=== PATIENT | male | born 1995 | race Caucasian/White ===

== ENCOUNTER 2016-11-29 02:07 | Emergency (ER) | payer BC ==
[~2016-11-29] VITALS: Ht 172.7 cm; Wt 72.6 kg
[~2016-11-29 02:07] MED LIST: CLARITIN10 MG PO; LEVAQUIN750 M1 PO; MOTRIN800 MG PO; Motrin,Rufen800 MG PO; PHENERGAN25 M3 PO; VICODIN 5/500 505 MG PO; ZITHROMAX Z PA250 MG PO; ZITHROMAX500 MG PO
== END 2016-11-29 03:39 | disposition home or self-care (01) ==
LOC: ED 02:07
DX: K40.90 Unilateral inguinal hernia, without obstruction or gangrene, not specified as recurrent (principal); Z79.899 Other long term (current) drug therapy

== ENCOUNTER 2017-08-23 14:02 | Emergency (ER) | payer OTHER ==
[~2017-08-23] VITALS: Ht 175.2 cm; Wt 72.6 kg
[2017-08-23] MEDS ORDERED: NORCO 5-325 TA1 EACH PO (15:47)
== END 2017-08-23 15:53 | disposition home or self-care (01) ==
LOC: ED 14:02
DX: S62.633A Displaced fracture of distal phalanx of left middle finger, initial encounter for closed fracture (principal); S62.635A Displaced fracture of distal phalanx of left ring finger, initial encounter for closed fracture; F10.10 Alcohol abuse, uncomplicated; W18.09XA Striking against other object with subsequent fall, initial encounter; Y93.89 Activity, other specified; Y92.89 Other specified places as the place of occurrence of the external cause; Y99.8 Other external cause status

== ENCOUNTER 2017-09-30 06:44 | Emergency (ER) | payer OTHER ==
[~2017-09-30] VITALS: Ht 175.2 cm; Wt 74.8 kg
[~2017-09-30 06:44] MED LIST changes: +NORCO 5-325 TA1 EACH PO
[2017-09-30 07:29] LABS: BASO # 0.1 10*3/uL (0.0-0.1); BASO % 0.9 % (0.0-1.0); EOS # 0.4 10*3/uL (0.0-0.4); EOS % 5.5 % (1.0-4.0); HEMATOCRIT 44.2 % (42.0-52.0); HEMOGLOBIN 15.2 g/dl (14.0-18.0); LYMPH % 29.8 % (27.0-41.0); MEAN CELL VOLUME 87.9 fl (80.0-94.0); MEAN CORPUSCULAR HGB 30.2 pg (27.0-31.0); MEAN CORPUSCULAR HGB CONC 34.4 g/dl (33.0-37.0); MEAN PLATELET VOLUME 10.3 fl (9.6-12.3); MONO # 0.4 10*3/uL (0.1-1.0); MONO % 6.1 % (3.0-9.0); NEUT # 3.9 10*3/uL (2.3-7.9); NEUT % 57.6 % (47.0-73.0); PLATELET COUNT AUTOMATED 249 10*3/uL (130-400); RED BLOOD COUNT 5.03 10*6/uL (4.50-5.90); RED CELL DISTRI WIDTH 11.9 % (0-14.5); WHITE BLOOD COUNT 6.8 10*3/uL (4.8-10.8)
[2017-09-30 07:43] LABS: ALKALINE PHOSPHATASE 74 U/L (45-117); BUN 15 mg/dl (7-24); CHLORIDE 105 mmol/L (98-107); CREATININE 1.13 mg/dL (0.70-1.30); LIPASE 119 U/L (73-393); SGOT/AST 22 IU/L (3-35); SGPT/ALT 29 U/L (12-78); SODIUM 139 mmol/L (136-145); TOTAL PROTEIN 7.3 gm/dL (6.4-8.2)
[2017-09-30 08:02] LABS: BILIRUBIN NEGATIVE (NEGATIVE); BLOOD 2+ (NEGATIVE); CLARITY CLEAR (CLEAR); COLOR YELLOW (YELLOW); GLUCOSE NEGATIVE (NEGATIVE); KETONE NEGATIVE (NEGATIVE); LEUKO ESTERASE NEGATIVE (NEGATIVE); NITRITE NEGATIVE (NEGATIVE); SPECIFIC GRAVITY 1.025 (1.005-1.030); UROBILINOGEN 0.2 E.U./dl (0.2-1.0)
[2017-09-30 08:11] LABS: MUCOUS TRACE; RBC 21-30 rbc/hpf (0-2)
[2017-09-30] MEDS ORDERED: ZOFRAN ODT4 MG SL (08:56)
[2017-09-30] MEDS ORDERED: Motrin,Rufen800 MG PO (08:56)
[2017-09-30] MEDS ORDERED: NORCO 5-325 TA1 EACH PO (08:56)
[2017-09-30] MEDS ORDERED: FLOMAX0.4 MG PO (08:56)
== END 2017-09-30 09:10 | disposition home or self-care (01) ==
LOC: ED 06:44
PROVIDERS: Emergency Medicine
DX: N20.1 Calculus of ureter (principal)

== ENCOUNTER → 2017-10-22 | Outpatient (CLI) | payer OTHER ==
[~2017-10-22] MED LIST changes: +FLOMAX0.4 MG PO; +ZOFRAN ODT4 MG SL
== END ==
LOC: RAD 13:46
DX: N20.0 Calculus of kidney (principal)

== ENCOUNTER → 2020-05-29 | Outpatient (CLI) | payer OTHER | END | disposition home or self-care (01) | LOC: US 08:30 | PROVIDERS: ATTEND Family Medicine | DX: N20.0 Calculus of kidney (principal) ==

== ENCOUNTER → 2021-01-12 | Outpatient (CLI) | payer BC ==
[~2021-01-12] MED LIST changes: +DECADRON6 M1 PO
== END | disposition home or self-care (01) ==
LOC: RAD 11:11
PROVIDERS: ATTEND Family Medicine
DX: R06.02 Shortness of breath (principal)

== ENCOUNTER 2021-02-08 10:33 | Emergency (ER) | payer BC ==
[~2021-02-08] VITALS: Ht 175.2 cm; Wt 83.9 kg
[~2021-02-08 10:33] MED LIST changes: -DECADRON6 M1 PO
[2021-02-08 11:33] LABS: BASO % 0.4 % (0.0-1.0); EOS % 0.4 % (1.0-4.0); HEMATOCRIT 47.9 % (42.0-52.0); LYMPH # 1.3 10*3/uL (1.3-4.4); LYMPH % 18.6 % (27.0-41.0); MEAN CELL VOLUME 88.7 fl (80.0-94.0); MEAN CORPUSCULAR HGB 29.1 pg (27.0-31.0); MEAN CORPUSCULAR HGB CONC 32.8 g/dl (33.0-37.0); MEAN PLATELET VOLUME 10.2 fl (9.6-12.3); MONO # 0.6 10*3/uL (0.1-1.0); MONO % 8.2 % (3.0-9.0); NEUT # 5.1 10*3/uL (2.3-7.9); NEUT % 72.1 % (47.0-73.0); PLATELET COUNT AUTOMATED 256 10*3/uL (130-400); RED CELL DISTRI WIDTH 13.1 % (0-14.5); WHITE BLOOD COUNT 7.1 10*3/uL (4.8-10.8)
[2021-02-08 11:52] LABS: ALBUMIN 3.5 gm/dl (3.1-4.5); ALKALINE PHOSPHATASE 68 U/L (45-117); BUN 11 mg/dl (7-24); CHLORIDE 102 mmol/L (98-107); CREATININE 1.35 mg/dL (0.70-1.30); LIPASE 149 U/L (73-393); POTASSIUM 3.5 mmol/L (3.5-5.1); SGOT/AST 28 IU/L (3-35); SGPT/ALT 47 U/L (12-78); SODIUM 136 mmol/L (136-145); TOTAL PROTEIN 7.4 gm/dL (6.4-8.2); TROPONIN I < 0.015 ng/ml (<0.045)
[2021-02-08 12:39] LABS: BILIRUBIN Negative (Negative); BLOOD Negative (Negative); CLARITY Clear (Clear); COLOR Yellow (Yellow); GLUCOSE Negative (Negative); KETONE Negative (Negative); LEUKO ESTERASE Negative (Negative); NITRITE Negative (Negative)
[2021-02-08 12:57] LABS: BACTERIA TRACE
[2021-02-08] MEDS ORDERED: DECADRON6 M1 PO (13:34)
== END 2021-02-08 14:00 | disposition home or self-care (01) ==
LOC: ED 10:33
PROVIDERS: Emergency Medicine
DX: U07.1 COVID-19 (principal); J12.81 Pneumonia due to SARS-associated coronavirus

== ENCOUNTER 2025-01-23 20:25 | Emergency (ER) | payer OTHER ==
[~2025-01-23] VITALS: Ht 175.2 cm; Wt 72.6 kg
[~2025-01-23 20:25] MED LIST changes: +DECADRON6 M1 PO
[2025-01-23] MEDS ORDERED: Ondansetron Hydrochloride 4 MG/2 ML VIAL IV ONE (21:00)
[2025-01-23 21:59] LABS: BILIRUBIN Negative (Negative); BLOOD 3+ (Negative); CLARITY Clear (Clear); COLOR Yellow (Yellow); KETONE Trace (Negative); LEUKO ESTERASE Negative (Negative); NITRITE Negative (Negative); PH 5.5 (4.5-8.0); SPECIFIC GRAVITY 1.020 (1.001-1.030); UROBILINOGEN 1.0 E.U./dl (0.0-1.0)
[2025-01-23] MEDS ORDERED: Ondansetron4 MG PO (22:09)
[2025-01-23] MEDS ORDERED: HYDROCODONE-AC1 EAC1 PO (22:09)
[2025-01-23] MEDS ORDERED: FLOMAX0.4 MG PO (22:09)
[2025-01-23] MEDS ORDERED: Acetaminophen/Hydrocodone 5 MG/325 MG TABLET PO ONE (22:15)
[2025-01-23] MEDS ORDERED: Ondansetron Hydrochloride 4 MG TAB SL ONE (22:15)
[2025-01-23] MEDS ORDERED: HYDROmorphONE Hydrochloride 0.5 MG/0.5 ML SYRINGE IV ONE (22:20)
[2025-01-23 22:54] LABS: RBC 41-50 rbc/hpf (0-2)
== END 2025-01-23 22:25 | disposition home or self-care (01) ==
LOC: ED 20:25
PROVIDERS: Internal Medicine
DX: N13.2 Hydronephrosis with renal and ureteral calculous obstruction (principal); N13.4 Hydroureter; Z79.899 Other long term (current) drug therapy

== ENCOUNTER 2025-01-25 14:09 | Emergency (ER) | payer OTHER ==
[~2025-01-25] VITALS: Wt 77.1 kg
[~2025-01-25 14:09] MED LIST changes: +HYDROCODONE-AC1 EAC1 PO; +Ondansetron4 MG PO
[2025-01-25] MEDS ORDERED: SODIUM CHLORIDE 0.9% 1,000 ML IV ONE (14:25)
[2025-01-25] MEDS ORDERED: Ondansetron Hydrochloride 4 MG/2 ML VIAL IV ONE (14:25)
[2025-01-25 14:41] LABS: BASO # 0.1 10*3/uL (0.0-0.1); BASO % 0.8 % (0.0-1.0); EOS # 0.5 10*3/uL (0.0-0.4); EOS % 4.6 % (1.0-4.0); MEAN CELL VOLUME 88.6 fl (80.0-94.0); MEAN CORPUSCULAR HGB 29.9 pg (27.0-31.0); MEAN PLATELET VOLUME 9.7 fl (9.6-12.3); MONO # 0.6 10*3/uL (0.1-1.0); MONO % 4.8 % (3.0-9.0); NEUT # 7.2 10*3/uL (2.3-7.9); NEUT % 62.6 % (47.0-73.0); NUCLEATED RED BLOOD CELL 0.0 % (0.0-0.0); NUCLEATED RED BLOOD CELL 0.0 10*3/uL (0.0-0.0); PLATELET COUNT AUTOMATED 315 10*3/uL (130-400); RED CELL DISTRI WIDTH 11.9 % (0-14.5)
[2025-01-25 15:01] LABS: BUN 8 mg/dl (9-23)
== END 2025-01-25 20:09 | disposition short-term general hospital (02) ==
LOC: ED 14:09
PROVIDERS: Internal Medicine
DX: N20.0 Calculus of kidney (principal); Z79.899 Other long term (current) drug therapy; Z88.1 Allergy status to other antibiotic agents; Z98.890 Other specified postprocedural states